=== PATIENT | female | born 1975 | race Asian ===

== ENCOUNTER 2017-08-16 10:29 | Emergency (ER) | payer OTHER ==
[~2017-08-16] VITALS: Ht 157.5 cm; Wt 59.0 kg
[2017-08-16 10:32] VITALS: Ht 157.5 cm; Wt 59.0 kg
[2017-08-16 11:17] LABS: BASOPHIL % 0.4 % (0-2); PLATELET COUNT 239 x10^3mcL (130-400); RED CELL DISTRIBUTION WIDTH 12.6 % (11.5-14.5)
[2017-08-16 12:26] LABS: CALCIUM 8.4 mg/dL (8.5-10.1); CARBON DIOXIDE 28.9 mmol/L (21-32); CHLORIDE SERUM 107 mmol/L (98-107); CREATININE SERUM 0.7 mg/dL (0.6-1.0); GFR1 > 60 mL/min; GLUCOSE SERUM 126 mg/dL (74-106); POTASSIUM SERUM 4.1 mmol/L (3.5-5.1); SODIUM SERUM 140 mmol/L (136-145)
[2017-08-16 14:18] VITALS: BP 115/62
== END 2017-08-16 14:18 | disposition home or self-care (01) ==
LOC: ED 10:29
PROVIDERS: Emergency Medicine
DX: R07.89 Other chest pain (principal); M54.6 Pain in thoracic spine; M25.512 Pain in left shoulder; R51 Headache
CPT/HCPCS: 90715; J1885; Q9967